=== PATIENT | female | born 1960 | race Caucasian/White ===

== ENCOUNTER 2016-08-23 14:13 | Emergency (ER) | payer SELFPAY ==
[2016-08-23 16:44] LABS: BASOPHILS 0.4 % (0-2); EOSINOPHILS 0.4 % (0-7); HEMATOCRIT 47.4 % (36.0-48.0); HEMOGLOBIN 16.3 g/dL (12-16); IMMATURE GRANULOCYTES 0.2 % (0-5); LYMPHOCYTES 18.5 % (15-50); MCH 30.8 pg (26.0-34.0); MCHC 34.4 g/dL (31.0-37.0); MCV 89.4 fL (80.0-100.0); MONOCYTES 8.4 % (2-11); NEUTROPHILS 72.1 % (40-80); PLATELET COUNT 318 10x3/uL (130-400); RDW 12.8 % (11.5-14.5); WBC 8.4 10x3/uL (4.8-10.8)
[2016-08-23 17:10] LABS: ALBUMIN 4.1 g/dL (3.4-5.0); ALKALINE PHOSPHATASE 63 U/L (46-116); ALT (SGPT) 29 U/L (10-68); BILIRUBIN - TOTAL 0.41 mg/dL (0.2-1.3); CALC OSMOLALITY 274 mosm/kg (275-300); CALCIUM 9.6 mg/dL (8.5-10.1); CARBON DIOXIDE 27.6 mmol/L (21.0-32.0); CHLORIDE - SERUM 100 mmol/L (98-107); CREATININE - SERUM 0.9 mg/dL (0.6-1.3); GLUCOSE 118 mg/dL (74-106); POTASSIUM - SERUM 4.1 mmol/L (3.5-5.1); PROTEIN - SERUM 8.6 g/dL (6.4-8.2); SODIUM 137 mmol/L (136-145); UREA NITROGEN 13 mg/dL (7-18); eGFR NON AFRICAN AMERICAN 68 mL/min (90-120)
[2016-08-23 17:22] LABS: CHOLESTEROL, TOTAL 359 mg/dL (0-200); CREATINE KINASE 49 UL (21-215); HDL CHOLESTEROL 51 mg/dL (32-96); LDL CHOLESTEROL 281 mg/dL (0-100); LDL-HDL RATIO 5.5 ratio (1.5-3.5); TRIGLYCERIDE 138 mg/dL (30-200)
[2016-08-23 17:23] LABS: TROPONIN-I < 0.017 ng/mL (0.000-0.060)
== END 2016-08-23 18:00 | disposition left against medical advice (07) ==
LOC: D.ER 14:13
PROVIDERS: Emergency Medicine
DX: R07.9 Chest pain, unspecified (principal)